=== PATIENT | male | born 1990 | race Caucasian/White ===

== ENCOUNTER 2018-06-12 08:51 | Outpatient (CLI) | payer OTHER ==
--- NOTE | 2018-06-12 11:02 | XRAY Report ---
Reason: BICEPS TENDINITIS,LEFT Procedure Date: 06/12/2018 Accession Number: [id number] / [id number] Procedure: WCP - Shoulder 2 View LT CPT Code: FULL RESULT: EXAM: LEFT SHOULDER RADIOGRAPHY EXAM DATE: 06/12/2018 09:08 AM. CLINICAL HISTORY: Left biceps tendinitis. COMPARISON: None. TECHNIQUE: 2 views. FINDINGS: Bones: Normal. No fracture or bone lesion. Joints: The glenohumeral and acromioclavicular joints are normal. Soft tissues: The visualized hemithorax is unremarkable. No soft tissue swelling. IMPRESSION: Normal shoulder radiography. [facility]
== END 2018-06-12 08:52 | disposition home or self-care (01) ==
LOC: DI.WCP 08:51
PROVIDERS: ATTEND Family Medicine
DX: M75.22 Bicipital tendinitis, left shoulder (principal)

== ENCOUNTER 2018-06-12 08:54 | Outpatient (CLI) | payer OTHER ==
--- NOTE | 2018-06-12 11:01 | XRAY Report ---
Reason: KNEE JOINT PAIN,RIGHT Procedure Date: 06/12/2018 Accession Number: [id number] / [id number] Procedure: WCP - Knee 2 View RT CPT Code: FULL RESULT: EXAM: RIGHT KNEE RADIOGRAPHY EXAM DATE: 06/12/2018 09:08 AM. CLINICAL HISTORY: Right knee joint pain. COMPARISON: None. TECHNIQUE: 2 views. FINDINGS: Bones: Normal. No fractures or bone lesions. Joints: Normal. No effusion. No subluxations. Soft Tissues: Normal. No soft tissue swelling. IMPRESSION: Normal knee radiography. [facility]
== END 2018-06-12 08:55 | disposition home or self-care (01) ==
LOC: DI.WCP 08:54
PROVIDERS: ATTEND Family Medicine
DX: M25.561 Pain in right knee (principal); M75.22 Bicipital tendinitis, left shoulder

== ENCOUNTER 2018-06-27 08:03 | Outpatient (CLI) | payer OTHER ==
--- NOTE | 2018-07-01 00:02 | Ultrasound Report ---
Reason: EPIDIDYMAL CYST, COLLES' FRACTURE OF LEFT RADIUS Procedure Date: 06/27/2018 Accession Number: [id number] / [id number] Procedure: US - Testicle w/Doppler CPT Code: FULL RESULT: EXAM: SCROTAL ULTRASOUND EXAM DATE: 06/27/2018 09:05 AM. CLINICAL HISTORY: EPIDIDYMAL CYST, COLLES FRACTURE OF LEFT RADIUS. COMPARISON: None. TECHNIQUE: Real-time scanning was performed with static images obtained. Both color-flow and Doppler spectral analysis were utilized. FINDINGS: Right: Testis: 4.1 x 1.9 x 2.6 cm. Normal size and echotexture. No mass, calcification, or abnormal blood flow. Epididymis: There is a small simple epididymal head cyst. Epididymal echotexture otherwise within normal limits. Hydrocele: None. Varicocele: None. Left: Testis: 4.0 x 2.0 x 2.5 cm. Normal size and echotexture. No mass, calcification, or abnormal blood flow. Epididymis: There is a small epididymal head cyst. Hydrocele: None. Varicocele: None. IMPRESSION: 1. The testes are normal in size, echotexture, and vascularity. 2. There are small bilateral epididymal head cysts. [facility]
== END 2018-06-27 08:04 | disposition home or self-care (01) ==
LOC: DI 08:03
PROVIDERS: ATTEND Family Medicine
DX: N50.3 Cyst of epididymis (principal)
CPT/HCPCS: 76870; 93975

== ENCOUNTER 2019-12-01 11:16 | Emergency (ER) | payer OTHER ==
[2019-12-01] MEDS ORDERED: AMOX/CLAV 875 MG/125 MG TABLET PO STA (12:35)
[2019-12-01] MEDS ORDERED: BACITRACIN ZINC OINT 1 PACKET TOP STA (12:35)
--- NOTE | 2019-12-01 12:40 | ED Physician Documentation ---
History of Present Illness - Stated complaint Stated Complaint: DOG BITE R ARM - Chief complaint Chief Complaint: Wound - History obtained from History obtained from: Patient - History of Present Illness Timing: Today Pain level max: 4 Pain level now: 3 - Additonal information Additional information: 28-year-old male states that he was bit by a friend's dog today. The dog bit him in the right leg and right arm. Small amount of bleeding. Vaccinations are up-to-date. Patient's tetanus is up-to-date. Nothing makes it better or worse Review of Systems Constitutional: denies: Fever, Chills Respiratory: denies: Cough GI: denies: Vomiting Skin: denies: Rash Musculoskeletal: denies: Neck pain, Back pain Neurologic: denies: Headache PD PAST MEDICAL HISTORY - Past Medical History Past Medical History: No - Past Surgical History Past Surgical History: No - Present Medications Home Medications: Ambulatory Orders Medication Instructions Recorded Confirmed Ibuprofen [Motrin] 400 mg PO Q6H PRN #30 tablet 09/23/15 10/09/15 Amoxicillin 500 mg PO TID 10/09/15 10/09/15 Clindamycin [Cleocin] 300 mg PO Q6H 10 Days capsule 10/10/15 oxyCODONE [Roxicodone] 5 mg PO Q4-6H #10 tablet 10/10/15 Amox/Clav 875/125 [Augmentin] 1 each PO Q12H #20 tablet 12/01/19 - Allergies Allergies/Adverse Reactions: Allergies Allergy/AdvReac Type Severity Reaction Status Date / Time No Known Drug Allergies Allergy Verified 12/01/19 11:22 - Social History Does the pt smoke?: No Smoking Status: Never smoker Does the pt drink ETOH?: Yes Does the pt have substance abuse?: No - Immunizations Immunizations are current?: Yes PD ED PE NORMAL - Vitals Vital signs reviewed: Yes - General General: Alert and oriented X 3, No acute distress - HEENT HEENT: Moist mucous membranes - Derm Derm: Warm and dry - Extremities Extremities: Other (Multiple abrasions to the right upper arm. 2 small puncture wounds that are minimally bleeding. There is a small puncture wound on the ri ght calf as well.) - Neuro Neuro: Alert and oriented X 3 Results - Vitals Vitals: Vital Signs - 24 hr 12/01/19 11:18 Temperature 36.8 C Heart Rate 90 Respiratory 20 Rate Blood Pressure 135/85 H O2 Saturation 99 Oxygen O2 Source Room air PD MEDICAL DECISION MAKING - ED course Complexity details: considered differential, d/w patient ED course: No lacerations that require repair. Wounds were cleansed, bandaged. Irrigated. Bacitracin applied. Tetanus up-to-date. Will place on Augmentin. Warnings of infection and instructions on wound care given at bedside. Also counseled on how to minimize scarring. Patient and family counseled regarding signs and symptoms for which I believe and urgent re-evaluation would be necessary. Patient with good understanding of and agreement to plan and is comfortable going home at this time This document was made in part using voice recognition software. While efforts are made to proofread this document, sound alike and grammatical errors may occur. Departure - Departure Disposition: 01 Home, Self Care Clinical Impression: Dog bite Qualifiers: Encounter type: initial encounter Qualified Code(s): W54.0XXA - Bitten by dog, initial encounter Condition: Good Instructions: ED Bite Animal General Follow-Up: Terrence Lantigua MD [Primary Care Provider] - Within 3 Days Prescriptions: Amox/Clav 875/125 [Augmentin] 1 each PO Q12H #20 tablet Comments: Take all antibiotics until gone. Return if you worsen. Follow-up with your doctor in 3 to 4 days for a wound check. Return if you notice redness, swelling or drainage from the wound.
[2019-12-01 12:46] VITALS: BP 132/76
== END 2019-12-01 12:48 | disposition home or self-care (01) ==
LOC: ED 11:16
DX: S41.151A Open bite of right upper arm, initial encounter (principal); S81.851A Open bite, right lower leg, initial encounter; W54.0XXA Bitten by dog, initial encounter; Y93.K9 Activity, other involving animal care
CPT/HCPCS: 99282; 99284; A9270

== ENCOUNTER 2020-01-26 15:38 | Outpatient (CLI) | payer OTHER ==
--- NOTE | 2020-01-26 17:30 | XRAY Report ---
PROCEDURE: Chest 2 View X-Ray INDICATIONS: PRODUCTIVE COUGH TECHNIQUE: 2 view(s) of the chest. COMPARISON: None. FINDINGS: Surgical changes and devices: None. Lungs and pleura: No pleural effusions or pneumothorax. Lungs are clear. Mediastinum: Mediastinal contours are normal. Heart size is normal. Bones and chest wall: No suspicious bony abnormalities. Soft tissues appear unremarkable. IMPRESSION: No acute pulmonary process. Reviewed by: Soco Simms MD on 01/26/2020 5:29 PM PST Approved by: Soco Simms MD on 01/26/2020 5:29 PM PST Station ID: [id number]
== END 2020-01-26 15:39 | disposition home or self-care (01) ==
LOC: DI 15:38
PROVIDERS: ATTEND Family Medicine
DX: R05 Cough (principal)
CPT/HCPCS: 71046